=== PATIENT | male | born 2000 | race Caucasian/White ===

== ENCOUNTER 2022-05-26 11:08 | Emergency (ER) | payer OTHER, SELFPAY ==
[2022-05-26 11:15] VITALS: BP 144/77; PULSE 66; RESP 16; TEMP 37.1; O2SAT 100
--- NOTE | 2022-05-26 11:18 | ED.WOUNDLAC ---
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 He says it hurts to walk on rest makes it better. He was working to [employer] in [place]. Onset (ago): minute(s) (30) Extremity Location: Left: lower leg Place: work Patient tetanus UTD: No Context: accidental Associated symptoms: none Treatments prior to arrival: bandage Related Data Allergies Allergy/AdvReac Type Severity Reaction Status Date / Time No Known Allergies Allergy Verified 05/26/22 11:18 Review of Systems Review of Systems: All systems reviewed & are unremarkable except as noted in HPI and below PMFSH Past Medical History Medical History (Updated 05/26/22 @ 12:09 by Robby Woodall MD) No active medical problems Surgical History Surgical History (Updated 05/26/22 @ 11:22 by Robby Woodall MD) History of appendectomy Social History Social History (Updated 05/26/22 @ 11:22 by Robby Woodall MD) Smoking packs per day: 0.5 Smoking cigarettes per day: 10.0 Smoking status: Current every day smoker Tobacco type: cigarettes Exam Const: General: healthy appearing, no acute distress and alert Nutritional Appearance: well nourished Orientation/consciousness: patient oriented x3 Limitations: no limitations HENMT: Head: normal to inspection Ears: external ears normal Eyes: Conjunctivae: conjunctivae normal Pupils: Equal, round and reactive pupils present EOM: EOMs intact bilaterally Neck: Neck: normal visual inspection Resp: Effort & Inspection: normal respiratory effort Auscultation: clear to auscultation bilaterally Cardio: Rate: regular rate Rhythm: regular rhythm GI: GI Palp: Yes Soft to palpation and No Tenderness to palpation present (GI) Auscultation: normal bowel sounds Back/Spine/Pelvis: Cervical Spine: cervical ROM normal Thoracic/Lumbar Spine: thoraco-lumbar ROM normal Skin: General skin exam: normal color Rashes: no rashes Wounds: wounds noted laceration left mid lower leg size (4 cm) Neuro: General: patient oriented x3, moves all extremities, no focal motor deficits and CN's II-XI intact bilaterally Speech: normal speech Gait exam (Neuro): Normal gait present Course Vital Signs Vital signs: Vital Signs Oxygen Delivery Room Air 05/26/22 11:08 Temperature 37.1 C 05/26/22 11:15 Pulse Rate 62 05/26/22 12:20 Respiratory Rate 16 05/26/22 12:20 Blood Pressure 130/78 05/26/22 12:20 Pulse Oximetry 98 05/26/22 12:20 Oxygen Delivery Room Air 05/26/22 12:20 Procedures Laceration Laceration 1: Date: 05/26/22 Site: lower extremity (left calf) Side (If applicable): left Size (cm): 4 Description: linear Depth: involves muscle layer Local Anesthetic: lidocaine 1% and with epi Amount of anesthesia used (mL): 8 Pre-repair: wound explored and irrigated ====== Skin Level ====== Skin layer closed with: nylon Size (cm): 3-0 Number of sutures: 10 Technique: running ====== Subcutaneous Layer ====== Subcutaneous layer closed with: chromic gut Size: 4-0 Number of sutures: 3 Technique: simple, interrupted ====== Muscle Layer ====== ====== Tendon Layer ====== Discharge Plan Discharge Clinical Impression: Laceration Patient Disposition: Home, Self-Care Condition: Improved Instructions: Antibiotic Form, Care For Your Stitches (ED), Laceration (ED) Additional Instructions: Leave bandage on for 36 hours. Do not get wet for 36 hours. have sutu
[2022-05-26] MEDS: TETANUS,DIPHTHERIA,AC PERTUSSIS ADULT 0.5 ML (ADACEL) IM (11:30)
[2022-05-26] MEDS: LIDO 1%/EPINEPHRINE 1:100,000 20 ML VIAL 10 ML INFILTRATE (11:32)
[2022-05-26] MEDS: NEOMYCIN/POLYMYXIN/BACITRACIN OINTMENT PACKET 1 PACKET TOPICAL (12:17)
[2022-05-26 12:20] VITALS: BP 130/78; PULSE 62; RESP 16; O2SAT 98
== END 2022-05-26 12:20 | disposition home or self-care (01) ==
PROVIDERS: Emergency Provider Emergency Medicine
DX: S81.812A Laceration without foreign body, left lower leg, initial encounter (principal); W26.0XXA Contact with knife, initial encounter
CPT/HCPCS: 12002; 90471; 90715; 99283